=== PATIENT | female | born 1975 | race Caucasian/White ===

== ENCOUNTER 2020-11-07 03:03 | Emergency (ER) | payer SELFPAY ==
[~2020-11-07] VITALS: Ht 162.6 cm; Wt 81.6 kg
--- NOTE | 2020-11-07 03:06 | NUR ---
PT BIBA TO BED 01
[2020-11-07 03:21] VITALS: BP 138/89
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
--- NOTE | 2020-11-07 03:55 | NUR ---
JENNA JO AT BEDSIDE FOR EVALUATION.
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
[2020-11-07] MEDS ORDERED: HYDROcodone/APAP 10/325 MG 1 TAB TAB PO STA (04:05)
--- NOTE | 2020-11-07 04:30 | NUR ---
RECEIVED FROM [facility] #[id number].
--- NOTE | 2020-11-07 05:25 | NUR ---
PT SIGNED CONSENT FOR TDAP VACCINATION, EXPLAINED RISK AND BENEFITS. VIS GIVEN.
[2020-11-07 05:52] VITALS: BP 138/89
== END 2020-11-07 05:40 | disposition home or self-care (01) ==
LOC: MED 03:03
DX: S09.8XXA Other specified injuries of head, initial encounter (principal); S00.83XA Contusion of other part of head, initial encounter; Y04.0XXA Assault by unarmed brawl or fight, initial encounter; Y93.89 Activity, other specified; Y92.89 Other specified places as the place of occurrence of the external cause; Y99.8 Other external cause status
CPT/HCPCS: 70450; 70486; 90471; 90715; 99285